=== PATIENT | female | born 1955 | race Caucasian/White ===

== ENCOUNTER 2021-09-05 21:12 | Emergency (ER) | payer SELFPAY ==
[2021-09-05 22:18] LABS: HEMOGLOBIN 16.8 gm/dl (12.3-15.3); RED BLOOD COUNT 4.99 M/UL (4.00-5.10); WHITE BLOOD COUNT 11.2 K/UL (4.5-11.0)
[2021-09-05 22:44] LABS: BUN/CREATININE RATIO 15 (0-10)
[2021-09-05] MEDS ORDERED: KEFLEX750 MG PO (23:50)
== END 2021-09-06 08:55 | disposition home or self-care (01) ==
LOC: ER1 21:12
PROVIDERS: Family Medicine
DX: N39.0 Urinary tract infection, site not specified (principal); M41.9 Scoliosis, unspecified; F17.210 Nicotine dependence, cigarettes, uncomplicated
CPT/HCPCS: 51701; 71046; 80053; 80061; 80307; 81001; 82150; 82550; 82553; 83605; 83690; 84439; 84443; 84484; 85025; 85610; 87077; 87086; 87186; 93005; 99284